=== PATIENT | female | born 1970 | race Caucasian/White ===

== ENCOUNTER → 2023-05-22 15:04 | Outpatient (REF) | payer BC, SELFPAY | LOC: HWWDC 15:04 | PROVIDERS: ATTENDING PHYSICIAN Obstetrics & Gynecology Gynecology; FAMILY PHYSICIAN Family Medicine | DX: Z12.31 Encounter for screening mammogram for malignant neoplasm of breast (principal) | CPT/HCPCS: 77063; 77067 ==

== ENCOUNTER → 2024-01-22 14:38 | Outpatient (REF) | payer BC, SELFPAY | LOC: HWRAD 14:38 | PROVIDERS: ATTENDING PHYSICIAN Emergency Medicine | DX: Z87.448 Personal history of other diseases of urinary system (principal) | CPT/HCPCS: 76775 ==

== ENCOUNTER → 2024-06-14 14:25 | Outpatient (REF) | payer BC, SELFPAY | LOC: HWWDC 14:25 | PROVIDERS: ATTENDING PHYSICIAN Obstetrics & Gynecology Gynecology; FAMILY PHYSICIAN Family Medicine | DX: Z12.39 Encounter for other screening for malignant neoplasm of breast (principal) | CPT/HCPCS: 77063; 77067 ==

== ENCOUNTER 2024-07-11 16:56 | Emergency (ER) | payer BC, SELFPAY ==
[2024-07-11 17:16] VITALS: BP 112/78
--- NOTE | 2024-07-11 18:33 | ED.GENMED ---
History of Present Illness
General
Chief Complaint: Skin Problem
Source: patient
Exam Limitations: none
Time Seen by Provider: 07/11/24 18:20
Nursing documentation reviewed up to this point in time: agreed with
History of Present Illness
History of Present Illness:
53-year-old female presenting to the emergency department today with concerns of inflammation and irritation to her right forearm. She had a bee sting to her right forearm 5 days ago the swelling itchiness and discomfort has increased over the past
5 days. Denies any systemic symptoms fevers nausea vomiting.
Past History
Past History
ED Past Medical History: Hypothyroidism
Social History
Tobacco: Non-smoker
Alcohol: None
Review of Systems
Review of Systems
Allergies reviewed?: Yes
All Other Systems: ROS reviewed and negative except as documented in HPI and ROS
Phy Exam
Physical Exam
Physical Exam:
GENERAL: Alert , in no apparent distress
EYE: pupils equal and reactive
NECK: Supple, no significant adenopathy.
ENT: o/p clr, mmm.
CARDIAC: Regular rate and rhythm .
LUNGS: Clear breath sounds bilaterally, no acute respiratory distress, no wheezes/rales/rhonchi
ABDOMEN: Soft, without focal tenderness, no r/g, no cvat
NEUROLOGICAL: Alert and oriented, no focal neuro deficits
SKIN: Right ulnar forearm with redness of 5 cm diameter mildly tender no fluctuance or induration. There is a central black dot. Warm and dry, skin intact.
MUSCULOSKELETAL: No edema, well perfused.
PSYCH: Normal and appropriate interaction.
Course
Orders/Labs/Results
Orders:
Orders
07/11/24 18:32
Cephalexin Monohydrate [Keflex] 500 mg PO NOW STA
Prednisone [Deltasone] 50 mg PO NOW STA
Vital Signs
Initial and Last Documented VS:
Initial Vital Signs
Temp Pulse Resp BP Pulse Ox
98.3 F 72 18 112/78 98
07/11/24 17:16 07/11/24 17:16 07/11/24 17:16 07/11/24 17:16 07/11/24 17:16
Last Documented Vital Signs
Temp Pulse Resp BP Pulse Ox
98.3 F 72 18 112/78 98
07/11/24 17:16 07/11/24 17:16 07/11/24 17:16 07/11/24 17:16 07/11/24 17:16
Procedures
Foreign Body Removal-Skin
Wound explored and foreign body removed?: Yes
Anesthesia: local and 1%lidocaine w/epinephrine
Foreign body removed using: forceps
Foreign body removed: completely
MDM/Problems Addressed
MDM/Problems Addressed:
53-year-old female presenting to the emergency department today with concerns of ongoing inflammation to her right forearm after bee sting 5 days ago. A small stinger was still in place to the area this was removed here. Patient was given
additional steroids to help with the inflammation and itchiness she was also started on antibiotics as an early secondary bacterial infection would be possible in the circumstance. She was advised return for any worsening symptoms and otherwise
follow-up with the primary care doctor.
*Critical Care Note
Total Time (30-74mins, 75-104mins- exclusive of procedures): Not Applicable
ED Attending Note
-
Portions of this chart may have been created with voice recognition software.� Occasional wrong word or��sound alike� substitutions may have occurred due to the inherent limitations of voice recognition software.
Discharge Plan
Departure
Patient Disposition: Home (Routine Discharge)
Date of Disposition: 07/11/24
Time of Disposition: 18:33
Patient with high blood pressure during this ER visit?: No
Condition: Good
Covid-19: Not Applicable
Discharge Problem:
Bee sting, Cellulitis
Instructions: Cellulitis (Skin Infection), Adult (DC)
Prescriptions:
New
cephalexin 500 mg capsule
500 mg PO QID 5 Days Qty: 20 0RF
methylprednisolone [Medrol (Abel)] 4 mg tablets,dose pack
See Rx Instructions .ROUTE .COMPLEX Qty: 21 0RF
Rx Instructions:
for 6 days
Activity Restrictions/Additional Instructions:
You came to the emergency department today with concerns of a bee sting to the right arm. This could be an early secondary infection or could be ongoing symptoms from the retained stinger. This was removed here. Please take the prescribed
medications to reduce any complications. Return for any worsening, new or concerning symptoms.
Interventions
Interventions:
*Risk Screen - Suicide Last Done: 07/11/24 17:19
*General Assessment Last Done: 07/11/24 18:22
*Neglect/Abuse Screening Last Done: 07/11/24 17:19
*ED- Fall Risk Assessment Last Done: 07/11/24 18:22
*ED COVID-19 Vaccine History Last Done: 07/11/24 17:19
*Nursing Disposition Last Done: 07/11/24 19:11
ED-Skin Assessment Last Done: 07/11/24 18:23
Discharge Date and Time
Discharge Date/Time: 07/11/24 19:11
Print Language: [place]
[2024-07-11] MEDS: KEFLEX 500 MG PO (18:42)
[2024-07-11] MEDS: DELTASONE 50 MG PO (18:42)
== END 2024-07-11 19:11 | disposition home or self-care (01) ==
LOC: EMR 16:56
PROVIDERS: EMERGENCY PHYSICIAN Emergency Medicine; FAMILY PHYSICIAN Family Medicine
DX: T63.441A Toxic effect of venom of bees, accidental (unintentional), initial encounter (principal); L03.113 Cellulitis of right upper limb
CPT/HCPCS: 99283